=== PATIENT | female | born 1950 | race Caucasian/White ===

== ENCOUNTER 2016-11-21 11:21 | Outpatient (CLI) | payer MEDICARE, BC ==
[2016-11-21 16:45] LABS: ALT (SGPT) 24 U/L (8-55); AST (SGOT) 38 U/L (5-34); Albumin 3.4 g/dL (3.4-4.8); Alkaline Phosphatase 58 U/L (40-150); Anion Gap 15 mmol/L (10-20); BUN (Urea Nitrogen) 24 mg/dL (9.8-20.1); Calc. Creatinine Clearance 0 mL/min (70-130); Calcium 9.2 mg/dL (7.8-10.44); Carbon Dioxide 24 mmol/L (23-31); Cardiac Risk 2.9 (Less than 4.5); Chloride 107 mmol/L (98-107); Cholesterol 140 mg/dl (< 200 Desired); Estimated GFR-MDRD 76; Globulin 3.1 g/dL (2.4-3.5); Glucose 106 mg/dL (80-115); HDL Cholesterol 48 mg/dL (>60 Neg Risk); LDL Cholesterol, Calculated 77 mg/dL; Potassium 4.9 mmol/L (3.5-5.1); Protein, Total 6.5 g/dL (6.0-8.3); Sodium 141 mmol/L (136-145); Triglycerides 75 mg/dL (Less than 150)
[2016-11-21 17:22] LABS: Hemoglobin A1c 5.1 % (4.0-6.0)
[2016-11-21 17:53] LABS: #Basophils 0.1 thou/uL (0.0-0.2); #Eosinphils 0.2 thou/uL (0.0-0.7); #Lymphocytes 1.2 thou/uL (1.20-3.40); #Monocytes 0.3 thou/uL (0.11-0.59); #Neutrophils 1.9 thou/uL (1.40-6.50); %Basophils 2.1 % (0.0-1.0); %Eosinophils 4.2 % (0.0-10.0); %Lymphocytes 32.6 % (21.0-51.0); %Monocytes 8.1 % (0.0-10.0); Hemoglobin 11.3 g/dL (12.0-16.0); MDiff Complete? YES; Macrocytosis SLIGHT = 6-15 cells (100X) (0-5/hpf); Mean Corpuscular HGB CONC 34.8 g/dL (32.0-36.0); Mean Corpuscular Hemoglobin 36.5 pg (27.0-31.0); Mean Platelet Volume 8.6 fL (7.4-10.4); PLT Morphology Comment BLOOD SMEAR CONFIRMS LOW PLATELET COUNT. PATIENT HX.; Platelet Count 97 thou/uL (130-400); RBC Distribution Width 11.2 % (11.5-14.5); Red Blood Cell (RBC) Count 3.11 mill/uL (4.20-5.40); White Blood Cell (WBC) Count 3.6 thou/uL (4.8-10.8)
== END 2016-11-21 11:22 | disposition home or self-care (01) ==
LOC: LABLEX 11:21
PROVIDERS: ATTEND Family Medicine
DX: E78.5 Hyperlipidemia, unspecified (principal); D61.818 Other pancytopenia; K76.0 Fatty (change of) liver, not elsewhere classified; E11.9 Type 2 diabetes mellitus without complications; I10 Essential (primary) hypertension
CPT/HCPCS: 80053; 80061; 83036; 84443; 85025

== ENCOUNTER 2016-12-20 09:21 | Outpatient (CLI) | payer MEDICARE, BC ==
--- NOTE | 2016-12-20 20:33 | ULT ---
THYROID ULTRASOUND 12/20/16 Ultrasonography of the thyroid gland was performed for evaluation of hyperthyroidism. No prior scans were available for comparison. The thyroid gland is enlarged. The right lobe measures 5.8 x 2.5 x 2.2 cm and the left measures 5.0 x 1.7 x 2.2 cm. There are at least three complex nodules in the right lobe. One is in the upper pole and measures 1. 3 cm long, one in the mid portion measuring 0.4 cm and another nearby complex nodule in the mid to l ower portion of the right lobe measuring 1.1 cm. On the left side, there are three smaller complex n odules, on the superior lobe. The most superior is 0.6 cm, the next 0.9 cm and the final one 0.9 cm in diameter. IMPRESSION: Although, ultrasound cannot rule out neoplasia in any single nodule, the constellation of findings i s most consistent with a multinodular goiter. POS: HOME
== END 2016-12-20 09:22 | disposition home or self-care (01) ==
LOC: BURULT 09:21
PROVIDERS: ATTEND Family Medicine
DX: E05.90 Thyrotoxicosis, unspecified without thyrotoxic crisis or storm (principal)
CPT/HCPCS: 76536

== ENCOUNTER 2017-03-02 09:30 | Outpatient (CLI) | payer MEDICARE, BC ==
[2017-03-02 16:35] LABS: #Basophils 0.1 thou/uL (0.0-0.2); #Eosinphils 0.3 thou/uL (0.0-0.7); #Lymphocytes 1.3 thou/uL (1.20-3.40); #Monocytes 0.5 thou/uL (0.11-0.59); #Neutrophils 3.1 thou/uL (1.40-6.50); %Basophils 2.5 % (0.0-1.0); %Lymphocytes 23.6 % (21.0-51.0); %Monocytes 9.2 % (0.0-10.0); %Neutrophils 58.8 % (42.0-75.0); Hemoglobin 12.1 g/dL (12.0-16.0); MDiff Complete? YES; Macrocytosis SLIGHT = 6-15 cells (100X) (0-5/hpf); Mean Corpuscular HGB CONC 35.7 g/dL (32.0-36.0); Platelet Count 135 thou/uL (130-400); RBC Distribution Width 11.2 % (11.5-14.5); Red Blood Cell (RBC) Count 3.27 mill/uL (4.20-5.40); White Blood Cell (WBC) Count 5.3 thou/uL (4.8-10.8)
== END 2017-03-02 09:31 | disposition home or self-care (01) ==
LOC: LABLEX 09:30
PROVIDERS: ATTEND Nurse Practitioner
DX: D61.818 Other pancytopenia (principal)
CPT/HCPCS: 85025